=== PATIENT | male | born 1980 | race Caucasian/White ===

== ENCOUNTER 2017-12-22 10:20 | Emergency (ER) | payer SELFPAY ==
[~2017-12-22] VITALS: Ht 175.3 cm; Wt 65.9 kg
[~2017-12-22 10:20] MED LIST: AMOXICILLIN 50500 MG PO; BACTRIM DS TAB1 EACH PO; GOOD NEIGHBOR500 M2 PO; MOTRIN 200200 MG/TAB PO; MOTRIN 800800 MG/TAB PO; MOTRIN800 MG PO; PEN-VK500 MG PO; PERCOCET 325 MG1 TA4 PO; PERCOCET 7.5/321 TA1 PO; ULTRAM 50MG TAB50 MG PO; ZOFRAN ODT8 MG PO
[2017-12-22 11:04] LABS: HEMATOCRIT 46.3 % (42.0-52.0); HEMOGLOBIN 15.6 g/dL (13.5-18.0); MEAN CELL VOLUME 91 fl (78-100); MEAN CORPUSCULAR HEMOGLOBIN 31 pg (27-31); MEAN CORPUSCULAR HGB CONC 34 g/dL (33-37); MEAN PLATELET VOLUME 8.8 fl (7.4-10.4); PLATELET COUNT 276 K/mm3 (130-400); RED BLOOD COUNT 5.11 M/mm3 (4.20-5.60); RED CELL DISTRIBUTION WIDTH 12.9 % (11.5-14.5); WHITE BLOOD COUNT 9.8 K/mm3 (4.8-10.8)
[2017-12-22 11:18] LABS: LYMPHOCYTE 13 % (20-51); MONOCYTE 6 % (3-10); NEUTROPHILS 81 % (42-75)
[2017-12-22] MEDS ORDERED: AMOXICILLIN 50500 MG PO (11:56)
[2017-12-22 12:20] VITALS: BP 112/74
== END 2017-12-22 12:14 | disposition home or self-care (01) ==
LOC: ED 10:20
PROVIDERS: Family Medicine
DX: K04.7 Periapical abscess without sinus (principal)

== ENCOUNTER 2018-08-21 09:35 | Emergency (ER) | payer SELFPAY ==
[~2018-08-21] VITALS: Ht 175.3 cm; Wt 61.4 kg
[2018-08-21 10:35] VITALS: BP 120/68
== END 2018-08-21 10:36 | disposition home or self-care (01) ==
LOC: ED 09:35
DX: M79.672 Pain in left foot (principal); Z87.81 Personal history of (healed) traumatic fracture; F17.210 Nicotine dependence, cigarettes, uncomplicated; Z90.49 Acquired absence of other specified parts of digestive tract

== ENCOUNTER 2020-02-17 21:03 | Emergency (ER) | payer MEDICAID ==
[~2020-02-17] VITALS: Ht 175.3 cm; Wt 61.4 kg
[2020-02-17 22:53] LABS: HEMATOCRIT 48.4 % (42.0-52.0); HEMOGLOBIN 16.2 g/dL (13.5-18.0); MEAN CELL VOLUME 91 fl (78-100); MEAN CORPUSCULAR HEMOGLOBIN 31 pg (27-31); MEAN CORPUSCULAR HGB CONC 34 g/dL (33-37); MEAN PLATELET VOLUME 8.2 fl (7.4-10.4); PLATELET COUNT 332 K/mm3 (130-400); RED CELL DISTRIBUTION WIDTH 12.7 % (11.5-14.5)
[2020-02-17 23:02] LABS: ALBUMIN 4.5 g/dL (3.5-5.0); LYMPHOCYTE 7 % (20-51); MONOCYTE 7 % (3-10); NEUTROPHILS 83 % (42-75); POTASSIUM 4.1 mmol/L (3.5-5.1)
[2020-02-17 23:03] LABS: CALCIUM 9.2 mg/dL (8.3-10.5)
[2020-02-17 23:05] LABS: TOTAL PROTEIN 7.7 g/dL (6.4-8.3)
[2020-02-17 23:06] LABS: TOTAL BILIRUBIN 0.6 mg/dL (0.2-1.2)
[2020-02-18 02:42] VITALS: BP 111/62
== END 2020-02-18 02:42 | disposition left against medical advice (07) ==
LOC: ED 21:03
PROVIDERS: Nurse Practitioner Family
DX: Z86.14 Personal history of Methicillin resistant Staphylococcus aureus infection (principal); L03.221 Cellulitis of neck; F17.210 Nicotine dependence, cigarettes, uncomplicated
CPT/HCPCS: J3370; J7030; J7050; Q9967

== ENCOUNTER → 2020-02-18 | Outpatient (CLI) | payer MEDICAID ==
[2020-02-18 02:42] VITALS: BP 111/62
== END ==
LOC: LAB 13:04
DX: L03.90 Cellulitis, unspecified (principal)

== ENCOUNTER 2020-02-19 22:02 | Outpatient (RCR) | payer MEDICAID ==
[2020-02-18 13:39] VITALS: BP 106/70
[2020-02-18 13:52] LABS: HEMATOCRIT 45.8 % (42.0-52.0); HEMOGLOBIN 15.5 g/dL (13.5-18.0); MEAN PLATELET VOLUME 8.3 fl (7.4-10.4); RED BLOOD COUNT 5.04 M/mm3 (4.20-5.60); RED CELL DISTRIBUTION WIDTH 12.8 % (11.5-14.5); WHITE BLOOD COUNT 13.2 K/mm3 (4.8-10.8)
[2020-02-18 14:55] VITALS: BP 117/77
[2020-02-18 22:25] VITALS: BP 124/73
[2020-02-18 23:35] VITALS: BP 108/78
[~2020-02-19] VITALS: Ht 175.3 cm; Wt 54.1 kg
[2020-02-19 10:32] VITALS: BP 107/70
[2020-02-19 11:10] VITALS: BP 125/76
[2020-02-19 22:40] VITALS: BP 117/66
[2020-02-19 23:36] VITALS: BP 112/71
== END 2020-02-19 23:00 | disposition home or self-care (01) ==
LOC: AMSURD 22:02
PROVIDERS: Nurse Practitioner Family
DX: Z79.899 Other long term (current) drug therapy (principal)
CPT/HCPCS: J3370; J7050

== ENCOUNTER → 2020-02-20 | Outpatient (CLI) | payer MEDICAID ==
[2020-02-19 23:36] VITALS: BP 112/71
[2020-02-20 09:54] LABS: BASO # 0.1 (0.02-0.10); EOS # 0.4 (0.04-0.40); HEMATOCRIT 41.2 % (42.0-52.0); HEMOGLOBIN 13.4 g/dL (13.5-18.0); LYMPH# 1.5 (1.50-4.00); MEAN CELL VOLUME 94 fl (78-100); MEAN CORPUSCULAR HEMOGLOBIN 31 pg (27-31); MEAN CORPUSCULAR HGB CONC 33 g/dL (33-37); MEAN PLATELET VOLUME 8.3 fl (7.4-10.4); MONO # 0.5 (0.20-0.80); NEU # 3.1 (1.40-6.50); PLATELET COUNT 306 K/mm3 (130-400); RED CELL DISTRIBUTION WIDTH 12.8 % (11.5-14.5); WHITE BLOOD COUNT 5.5 K/mm3 (4.8-10.8)
[2020-02-20 09:55] LABS: EOS % 6.5 % (0.0-4.0)
== END ==
LOC: LAB 09:26
PROVIDERS: Family Medicine
DX: L03.90 Cellulitis, unspecified (principal)

== ENCOUNTER 2020-09-05 13:00 | Emergency (ER) | payer MEDICAID ==
[2020-09-05 14:31] LABS: BASO # 0.1 (0.02-0.10); EOS # 0.4 (0.04-0.40); HEMOGLOBIN 13.9 g/dL (13.5-18.0); MEAN CELL VOLUME 93 fl (78-100); MEAN CORPUSCULAR HEMOGLOBIN 31 pg (27-31); MEAN CORPUSCULAR HGB CONC 33 g/dL (33-37); MEAN PLATELET VOLUME 8.4 fl (7.4-10.4); MONO # 0.5 (0.20-0.80); NEU # 3.8 (1.40-6.50); PLATELET COUNT 296 K/mm3 (130-400); RED BLOOD COUNT 4.54 M/mm3 (4.20-5.60); RED CELL DISTRIBUTION WIDTH 12.4 % (11.5-14.5); WHITE BLOOD COUNT 5.7 K/mm3 (4.8-10.8)
[2020-09-05 14:37] LABS: POTASSIUM 3.9 mmol/L (3.5-5.1)
[2020-09-05 14:38] LABS: CALCIUM 8.6 mg/dL (8.3-10.5)
[2020-09-05 14:40] LABS: TOTAL PROTEIN 6.4 g/dL (6.4-8.3)
[2020-09-05 14:41] LABS: TOTAL BILIRUBIN 0.5 mg/dL (0.2-1.2)
[2020-09-05] MEDS ORDERED: ZOFRAN ODT4 MG PO (15:21)
[2020-09-05 15:28] VITALS: BP 111/73
== END 2020-09-05 15:32 | disposition home or self-care (01) ==
LOC: ED 13:00
PROVIDERS: Family Medicine
DX: A08.4 Viral intestinal infection, unspecified (principal); F17.210 Nicotine dependence, cigarettes, uncomplicated; Z20.822 Contact with and (suspected) exposure to COVID-19; Z90.89 Acquired absence of other organs